=== PATIENT | female | born 1950 | race Caucasian/White ===

== ENCOUNTER 2018-08-20 18:57 | Emergency (ER) | payer MEDICAID, OTHER ==
[~2018-08-20] VITALS: Ht 152.4 cm; Wt 87.3 kg
[2018-08-20 19:11] VITALS: BP 140/64
--- NOTE | 2018-08-20 19:13 | NUR ---
TO LOBBY, AWATING BED IN ED. VSS.
[2018-08-20 20:16] VITALS: BP 143/68
--- NOTE | 2018-08-20 20:16 | NUR ---
PT [facility] IN LOBBY WITH VSS, AWAITNG BED IN DEPT.
--- NOTE | 2018-08-20 20:48 | NUR ---
PATIENT AMBULATED TO ER BED 11
--- NOTE | 2018-08-20 20:53 | NUR ---
68 Y/O F PRESENTED TO ED WITH C/O L SIDE FACIAL PAIN X7 HOURS. 8/10 PAIN, ACHING AND THROBBING. PAIN LOCATED TO L LOWER MOLAR. TENDER TO TOUCH. MUCOUS MEMBANES PINK AND MOIST. ERMD NOTIFIED. WILL CONTINUE TO MONITOR.
[2018-08-20] MEDS ORDERED: KETOROLAC 30 MG/ML VIAL IM ONE (21:30)
--- NOTE | 2018-08-20 22:26 | NUR ---
Patient discharged with v/s stable. Written and verbal after care instructions given and explained. Patient alert, oriented and verbalized understanding of instructions. Ambulatory with steady gait. All questions addressed prior to discharge. ID band removed. Patient advised to follow up with PMD. Rx of azithromycin and motrin given. Patient educated on indication of medication including possible reaction and side effects. Opportunity to ask questions provided and answered.
== END 2018-08-20 22:26 | disposition home or self-care (01) ==
LOC: MED 18:57
DX: B34.9 Viral infection, unspecified (principal); R59.9 Enlarged lymph nodes, unspecified; E11.9 Type 2 diabetes mellitus without complications; I10 Essential (primary) hypertension; Z88.6 Allergy status to analgesic agent
CPT/HCPCS: 96372; 99283; J1885

== ENCOUNTER 2020-12-27 08:36 | Emergency (ER) | payer MEDICARE, MEDICAID ==
[~2020-12-27] VITALS: Ht 149.9 cm; Wt 87.2 kg
[2020-12-27 08:44] VITALS: BP 155/80
--- NOTE | 2020-12-27 08:55 | NUR ---
patient ambulated to bed 8.
--- NOTE | 2020-12-27 09:08 | NUR ---
70 y/o female c/o left flank pain x 4 days. Pt states 8/10 aching to left flank. Denies hematuria/dysuria. Denies n/v/d. Skin warm, dry, intact. Awake and alert. VSS Positioned for comfort. Bed locked and in lowest position. medhx: DM, HTN
[2020-12-27] MEDS ORDERED: MORPHINE SULFATE 2 MG/ML SYR IVP ONE (09:15)
[2020-12-27] MEDS ORDERED: KETOROLAC 15 MG/ML VIAL IVP ONE (09:15)
[2020-12-27 09:40] LABS: BASOPHILS % (AUTO) 0.4 % (0.0-2.0); EOSINOPHILS # (AUTO) 0.1 K/uL (0-0.4); EOSINOPHILS % (AUTO) 1.5 % (0.0-4.0); HEMOGLOBIN 12.4 g/dL (12.0-16.0); LYMPHOCYTES % (AUTO) 30.1 % (20.5-51.1); MEAN CORPUSCULAR HEMOGLOBIN 27 pg (27-31); MEAN CORPUSCULAR HGB CONC 33 g/dL (33-37); MEAN CORPUSCULAR VOLUME 83.6 fL (80-94); MONOCYTES # (AUTO) 0.3 K/uL (0.8-1.0); MONOCYTES % (AUTO) 3.9 % (1.7-9.3); NEUTROPHILS # (AUTO) 4.2 K/uL (1.8-7.7); NEUTROPHILS % (AUTO) 64.1 % (42.2-75.2); PLATELET COUNT (AUTO) 221 K/uL (140-450); RED BLOOD CELL COUNT(AUTO) 4.54 MIL/uL (4.20-5.40); RED CELL DISTRIBUTION WIDTH 15.3 % (11.6-13.7); WHITE BLOOD COUNT (AUTO) 6.6 K/uL (4.8-10.8)
[2020-12-27 09:47] LABS: APPEARANCE,URINE CLEAR (CLEAR); BILIRUBIN,URINE NEGATIVE (NEGATIVE); BLOOD, URINE NEGATIVE (NEGATIVE); COLOR,URINE YELLOW (YELLOW); LEUKOCYTE ESTERASE ,URINE NEGATIVE (NEGATIVE); NITRITE, URINE NEGATIVE (NEGATIVE); UGLUCOSE NEGATIVE (NEGATIVE)
[2020-12-27 09:48] LABS: ANION GAP 15.9 (8-16); CARBON DIOXIDE 25.1 mmol/L (21-32); CHLORIDE 106 mmol/L (98-107); CREATININE 0.8 mg/dL (0.6-1.3); GLUCOSE 133 mg/dL (74-106); SODIUM SERUM 143 mmol/L (136-145); UREA NITROGEN, BLOOD 14 mg/dL (7-18)
[2020-12-27 09:54] LABS: ALBUMIN 3.4 g/dL (3.4-5.0); ASPARTATE AMINOTRANSFERASE 14 U/L (15-37); LIPASE 115 U/L (73-393); TOTAL BILIRUBIN 0.5 mg/dL (0.0-1.0)
--- NOTE | 2020-12-27 10:14 | NUR ---
Pt taken to [facility] via [facility] to [facility]
--- NOTE | 2020-12-27 11:54 | NUR ---
Pt returned from [facility]
[2020-12-27] MEDS ORDERED: LID5T TP (12:20)
[2020-12-27] MEDS ORDERED: IBUP-1842 PO (12:20)
[2020-12-27] MEDS ORDERED: ACET-10509 PO (12:20)
[2020-12-27 13:07] VITALS: BP 148/79
--- NOTE | 2020-12-27 13:08 | NUR ---
Patient discharged with v/s stable. Written and verbal after care instructions given and explained. Patient alert, oriented and verbalized understanding of instructions. Ambulatory with steady gait. All questions addressed prior to discharge. ID band removed. Patient advised to follow up with PMD. Rx of tylenol, motrin, lidocaine patch given. Patient educated on indication of medication including possible reaction and side effects. Opportunity to ask questions provided and answered.
== END 2020-12-27 13:08 | disposition home or self-care (01) ==
LOC: MED 08:36
DX: M54.50 Low back pain, unspecified (principal); E11.9 Type 2 diabetes mellitus without complications; I10 Essential (primary) hypertension; Z79.899 Other long term (current) drug therapy; Z88.6 Allergy status to analgesic agent
CPT/HCPCS: 36415; 80053; 81003; 83690; 85025; 96374; 96375; 99284; J1885; J2270; 81002

== ENCOUNTER 2021-07-27 18:13 | Emergency (ER) | payer OTHER, MEDICAID ==
[~2021-07-27] VITALS: Ht 146.1 cm; Wt 86.9 kg
[~2021-07-27 18:13] MED LIST: ACET-10509 PO; IBUP-1842 PO; LID5T TP
[2021-07-27 18:28] VITALS: BP 210/101
--- NOTE | 2021-07-27 18:37 | NUR ---
PT AMB TO BED 1.
--- NOTE | 2021-07-27 19:00 | NUR ---
71 y/o female c/o cough and mid chest pain. Patient has mid chest pain x 2 days and cough x1 week. Patient has a 4/10 pain level to chest with a pressure. Medical History: DM, HTN ALLERGY: ASPIRIN
--- NOTE | 2021-07-27 19:11 | NUR ---
Report given to SALLY [place] for transfer of care.
[2021-07-27] MEDS ORDERED: ALBUTEROL SULFATE/IPRATROPIU 3 ML SOL IH ONE (19:25)
[2021-07-27] MEDS ORDERED: BENZONATATE 100 MG CAPLF PO ONE (19:25)
--- NOTE | 2021-07-27 19:33 | NUR ---
XRAY AT BEDSIDE
--- NOTE | 2021-07-27 19:34 | NUR ---
RT AT BEDSIDE
[2021-07-27 19:37] LABS: BASOPHILS % (AUTO) 0.3 % (0.0-2.0); EOSINOPHILS # (AUTO) 0.2 K/uL (0-0.4); EOSINOPHILS % (AUTO) 2.6 % (0.0-4.0); HEMOGLOBIN 12.6 g/dL (12.0-16.0); LYMPHOCYTES # (AUTO) 2.6 K/uL (2.5-16.5); LYMPHOCYTES % (AUTO) 30.7 % (20.5-51.1); MEAN CORPUSCULAR HEMOGLOBIN 27 pg (27-31); MEAN CORPUSCULAR HGB CONC 33 g/dL (33-37); MEAN CORPUSCULAR VOLUME 81.7 fL (80-94); MONOCYTES # (AUTO) 0.4 K/uL (0.8-1.0); MONOCYTES % (AUTO) 4.4 % (1.7-9.3); NEUTROPHILS # (AUTO) 5.3 K/uL (1.8-7.7); PLATELET COUNT (AUTO) 230 K/uL (140-450); RED BLOOD CELL COUNT(AUTO) 4.65 MIL/uL (4.20-5.40); WHITE BLOOD COUNT (AUTO) 8.6 K/uL (4.8-10.8)
[2021-07-27 20:17] LABS: ALBUMIN 3.5 g/dL (3.4-5.0); ANION GAP 12.6 (8-16); ASPARTATE AMINOTRANSFERASE 18 U/L (15-37); CARBON DIOXIDE 26.5 mmol/L (21-32); CHLORIDE 105 mmol/L (98-107); CREATININE 0.9 mg/dL (0.6-1.3); GLUCOSE 123 mg/dL (74-106); POTASSIUM 4.1 mmol/L (3.5-5.1); SODIUM SERUM 140 mmol/L (136-145); TOTAL BILIRUBIN 0.5 mg/dL (0.0-1.0); UREA NITROGEN, BLOOD 11 mg/dL (7-18)
--- NOTE | 2021-07-27 20:38 | NUR ---
COVID AND FLU SWABS COLLECTED AND SENT TO LAB
--- NOTE | 2021-07-27 22:03 | NUR ---
INFLUENZA B POSITIVE. ER NOTIFED
[2021-07-27] MEDS ORDERED: BENZ200C4 PO (23:27)
[2021-07-27 23:40] VITALS: BP 158/57
--- NOTE | 2021-07-27 23:40 | NUR ---
Patient discharged with v/s stable. Written and verbal after care instructions given and explained. Patient alert, oriented and verbalized understanding of instructions. Ambulatory with steady gait. All questions addressed prior to discharge. ID band removed. Patient advised to follow up with PMD. Rx of BENXONATATE given. Patient educated on indication of medication including possible reaction and side effects. Opportunity to ask questions provided and answered.
--- NOTE | 2021-07-27 23:41 | NUR ---
Chart checked and completed.
== END 2021-07-27 23:40 | disposition home or self-care (01) ==
LOC: MED 18:13
DX: J10.1 Influenza due to other identified influenza virus with other respiratory manifestations (principal); Z20.822 Contact with and (suspected) exposure to COVID-19; E11.9 Type 2 diabetes mellitus without complications; I10 Essential (primary) hypertension; Z79.899 Other long term (current) drug therapy; Z88.6 Allergy status to analgesic agent
CPT/HCPCS: 36415; 71045; 80053; 81002; 82948; 83880; 84484; 85025; 93005; 94640; 99285

== ENCOUNTER 2022-02-15 04:59 | Emergency (ER) | payer OTHER, MEDICAID ==
[~2022-02-15] VITALS: Ht 152.4 cm; Wt 89.8 kg
[~2022-02-15 04:59] MED LIST changes: +BENZ200C4 PO
[2022-02-15 05:01] VITALS: BP 206/77
--- NOTE | 2022-02-15 05:20 | NUR ---
PATIENT AMBULATED TO BED 12 WITH DAUGHTER. PLACED BEDSIDE BODY MASKER. BED LOW AND LOCKED. SIDE RAILS FOR SAFETY X1. ALL NEED MET.
[2022-02-15] MEDS ORDERED: ALBUTEROL SULFATE/IPRATROPIU 3 ML SOL IH ONE (05:25)
--- NOTE | 2022-02-15 05:25 | NUR ---
SWABS COLLECTED AND WALKED TO LAB
--- NOTE | 2022-02-15 05:31 | NUR ---
RT AT BEDSIDE
--- NOTE | 2022-02-15 05:54 | NUR ---
RAD AT BEDSIDE
--- NOTE | 2022-02-15 05:56 | NUR ---
LAB AT BEDSIDE
[2022-02-15 06:28] LABS: BASOPHILS % (AUTO) 0.3 % (0.0-2.0); EOSINOPHILS # (AUTO) 0.1 K/uL (0-0.4); EOSINOPHILS % (AUTO) 1.2 % (0.0-4.0); HEMATOCRIT 37.6 % (36-48); HEMOGLOBIN 12.4 g/dL (12.0-16.0); LYMPHOCYTES # (AUTO) 1.7 K/uL (2.5-16.5); LYMPHOCYTES % (AUTO) 30.5 % (20.5-51.1); MEAN CORPUSCULAR HEMOGLOBIN 27 pg (27-31); MEAN CORPUSCULAR HGB CONC 33 g/dL (33-37); MEAN CORPUSCULAR VOLUME 82.9 fL (80-94); MONOCYTES # (AUTO) 0.3 K/uL (0.8-1.0); MONOCYTES % (AUTO) 5.7 % (1.7-9.3); NEUTROPHILS # (AUTO) 3.4 K/uL (1.8-7.7); NEUTROPHILS % (AUTO) 62.3 % (42.2-75.2); PLATELET COUNT (AUTO) 163 K/uL (140-450); RED BLOOD CELL COUNT(AUTO) 4.53 MIL/uL (4.20-5.40); RED CELL DISTRIBUTION WIDTH 14.4 % (11.6-13.7); WHITE BLOOD COUNT (AUTO) 5.4 K/uL (4.8-10.8)
--- NOTE | 2022-02-15 06:30 | NUR ---
Dr. Islas by bedside evaluating Pt
[2022-02-15] MEDS ORDERED: guaiFENesin DM 200/20 MG-10 ML 10 ML UDC PO ONE (06:40)
[2022-02-15 06:45] LABS: ANION GAP 13.7 (8-16); ASPARTATE AMINOTRANSFERASE 19 U/L (15-37); CHLORIDE 106 mmol/L (98-107); CREATININE 0.9 mg/dL (0.6-1.3); GLUCOSE 144 mg/dL (74-106); POTASSIUM 3.7 mmol/L (3.5-5.1); SODIUM SERUM 144 mmol/L (136-145); TOTAL BILIRUBIN 0.3 mg/dL (0.0-1.0); UREA NITROGEN, BLOOD 14 mg/dL (7-18)
--- NOTE | 2022-02-15 06:52 | NUR ---
PATIENT MEDICATED PER ORDERS. TOLERATED WELL.
[2022-02-15] MEDS ORDERED: ROB PO (07:15)
--- NOTE | 2022-02-15 07:20 | NUR ---
Pt report given to Kimi TAVAREZ. Transfer of care at this time.
--- NOTE | 2022-02-15 07:20 | NUR ---
RECEIVED REPORT FROM JACOB TAVAREZ AND DAYANNA RN, TRANSFER OF CARE AT THIS TIME
--- NOTE | 2022-02-15 07:30 | NUR ---
CLARIFIED WITH DR ELIZALDE REGARDING PT VS, ERMJermaine STATED THAT PT IS OK TO DISCHARGE WITH VITALS. CALLED DAUGHTER TO [employer]ES OPERATOR PT
[2022-02-15 07:38] VITALS: BP 187/73
--- NOTE | 2022-02-15 07:38 | NUR ---
Patient discharged with v/s stable. Written and verbal after care instructions ABOUT UPPER RESPIRATORY INFECTION given and explained. Patient alert, oriented and verbalized understanding of instructions. Ambulatory with steady gait. All questions addressed prior to discharge. ID band removed. Patient advised to follow up with PMD. Rx of ROBITUSSIN given. Patient educated on indication of medication including possible reaction and side effects. Opportunity to ask questions provided and answered.
== END 2022-02-15 07:38 | disposition home or self-care (01) ==
LOC: MED 04:59
DX: J06.9 Acute upper respiratory infection, unspecified (principal); Z20.822 Contact with and (suspected) exposure to COVID-19; E11.9 Type 2 diabetes mellitus without complications; I10 Essential (primary) hypertension; Z79.899 Other long term (current) drug therapy; Z88.6 Allergy status to analgesic agent
CPT/HCPCS: 36415; 71045; 80053; 84484; 85025; 93005; 94640; 99285

== ENCOUNTER 2023-08-10 14:13 | Emergency (ER) | payer MEDICARE, MEDICAID ==
[~2023-08-10] VITALS: Ht 152.4 cm; Wt 86.6 kg
[~2023-08-10 14:13] MED LIST changes: +ROB PO
[2023-08-10 14:38] VITALS: BP 154/82; PULSE 94; RESP 18; TEMP 98; O2SAT 95
[2023-08-10 14:45] VITALS: O2SAT 95
[2023-08-10 15:27] LABS: BASOPHILS % (AUTO) 0.4 % (0.0-2.0); EOSINOPHILS # (AUTO) 0.1 K/uL (0-0.4); HEMOGLOBIN 12.9 g/dL (12.0-16.0); LYMPHOCYTES % (AUTO) 20.3 % (20.5-51.1); MEAN CORPUSCULAR HEMOGLOBIN 28 pg (27-31); MEAN CORPUSCULAR HGB CONC 34 g/dL (33-37); MEAN CORPUSCULAR VOLUME 82.6 fL (80-94); MONOCYTES # (AUTO) 0.4 K/uL (0.8-1.0); MONOCYTES % (AUTO) 4.1 % (1.7-9.3); NEUTROPHILS # (AUTO) 7.5 K/uL (1.8-7.7); NEUTROPHILS % (AUTO) 74.2 % (42.2-75.2); PLATELET COUNT (AUTO) 258 K/uL (140-450); RED CELL DISTRIBUTION WIDTH 15.1 % (11.6-13.7); WHITE BLOOD COUNT (AUTO) 10.1 K/uL (4.8-10.8)
[2023-08-10] MEDS: KETOROLAC 30 MG/ML VIAL IVP ONE (15:37)
[2023-08-10] MEDS: ONDANSETRON 4 MG/2 ML VIAL IVP ONE (15:41)
[2023-08-10 15:46] LABS: ANION GAP 15.5 (8-16); CALCIUM 9.8 mg/dL (8.5-10.1); CARBON DIOXIDE 26.2 mmol/L (21-32); CHLORIDE 101 mmol/L (98-107); CREATININE 1.2 mg/dL (0.6-1.3); GLUCOSE 130 mg/dL (74-106); POTASSIUM 3.7 mmol/L (3.5-5.1); SODIUM SERUM 139 mmol/L (136-145); UREA NITROGEN, BLOOD 12 mg/dL (7-18)
[2023-08-10 15:48] LABS: APPEARANCE,URINE CLEAR (CLEAR); BILIRUBIN,URINE NEGATIVE (NEGATIVE); BLOOD, URINE NEGATIVE (NEGATIVE); COLOR,URINE YELLOW (YELLOW); LEUKOCYTE ESTERASE ,URINE NEGATIVE (NEGATIVE); NITRITE, URINE NEGATIVE (NEGATIVE); PROTEIN,URINE NEGATIVE (NEGATIVE); UGLUCOSE NEGATIVE (NEGATIVE); UROBILINOGEN,URINE 0.2 EU/dL (0.2 - 1)
[2023-08-10 15:49] LABS: BILIRUBIN,DIRECT 0.1 mg/dL (0.0-0.3); TOTAL BILIRUBIN 0.7 mg/dL (0.0-1.0); TOTAL PROTEIN, SERUM 7.9 g/dL (6.4-8.2)
[2023-08-10] MEDS ORDERED: IBUP-2213 PO (16:06)
[2023-08-10] MEDS ORDERED: ONDA8TAB87 PO (16:06)
== END 2023-08-10 16:21 | disposition home or self-care (01) ==
LOC: MED 14:13
DX: R10.13 Epigastric pain (principal); I10 Essential (primary) hypertension; E11.9 Type 2 diabetes mellitus without complications; Z79.82 Long term (current) use of aspirin; Z79.4 Long term (current) use of insulin; Z79.899 Other long term (current) drug therapy; Z90.710 Acquired absence of both cervix and uterus
CPT/HCPCS: 36415; 74176; 80048; 80076; 81003; 83690; 85025; 96374; 96375; 99285; J1885; J2405

== ENCOUNTER 2023-10-11 11:18 | Emergency (ER) | payer MEDICARE, MEDICAID ==
[~2023-10-11] VITALS: Ht 152.4 cm; Wt 89.8 kg
[~2023-10-11 11:18] MED LIST changes: +IBUP-2213 PO; +ONDA8TAB87 PO
[2023-10-11 11:22] VITALS: BP 131/74; PULSE 68; RESP 18; TEMP 98.3; O2SAT 95
[2023-10-11 11:27] VITALS: O2SAT 94
[2023-10-11 12:06] LABS: BASOPHILS % (AUTO) 0.3 % (0.0-2.0); EOSINOPHILS # (AUTO) 0.2 K/uL (0-0.4); EOSINOPHILS % (AUTO) 2.6 % (0.0-4.0); HEMATOCRIT 35.1 % (36-48); HEMOGLOBIN 11.4 g/dL (12.0-16.0); LYMPHOCYTES # (AUTO) 1.9 K/uL (2.5-16.5); LYMPHOCYTES % (AUTO) 23.9 % (20.5-51.1); MEAN CORPUSCULAR HEMOGLOBIN 27 pg (27-31); MEAN CORPUSCULAR HGB CONC 33 g/dL (33-37); MEAN CORPUSCULAR VOLUME 82.5 fL (80-94); MONOCYTES # (AUTO) 0.4 K/uL (0.8-1.0); MONOCYTES % (AUTO) 5.1 % (1.7-9.3); NEUTROPHILS # (AUTO) 5.3 K/uL (1.8-7.7); NEUTROPHILS % (AUTO) 68.1 % (42.2-75.2); PLATELET COUNT (AUTO) 205 K/uL (140-450); RED BLOOD CELL COUNT(AUTO) 4.25 MIL/uL (4.20-5.40); RED CELL DISTRIBUTION WIDTH 15.4 % (11.6-13.7); WHITE BLOOD COUNT (AUTO) 7.8 K/uL (4.8-10.8)
[2023-10-11 12:21] LABS: ANION GAP 14.6 (8-16); CALCIUM 9.2 mg/dL (8.5-10.1); CARBON DIOXIDE 23.3 mmol/L (21-32); CHLORIDE 104 mmol/L (98-107); CREATININE 0.9 mg/dL (0.6-1.3); GLUCOSE 183 mg/dL (74-106); POTASSIUM 3.9 mmol/L (3.5-5.1); SODIUM SERUM 138 mmol/L (136-145); UREA NITROGEN, BLOOD 12 mg/dL (7-18)
[2023-10-11 12:31] LABS: INR 0.98 (0.8-1.2); PROTHROMBIN TIME 10.3 secs (10.8-13.4)
[2023-10-11 12:36] LABS: PARTIAL THROMBOPLASTIN TIME 19.2 secs (22-35.6)
[2023-10-11] MEDS: ALBUTEROL 0.083% 2.5 MG/3 ML NEBU INH ONE (13:08)
[2023-10-11 13:09] VITALS: PULSE 60; RESP 24; O2SAT 98
[2023-10-11] MEDS: LOSARTAN 50 MG TAB PO ONE (13:54)
[2023-10-11 14:52] VITALS: O2SAT 98
[2023-10-11] MEDS ORDERED: AZIT250T4 PO (15:15)
[2023-10-11] MEDS ORDERED: ALBU0.0912 IH (15:15)
[2023-10-11 15:18] VITALS: BP 162/80; PULSE 62; RESP 19; TEMP 98.3; O2SAT 94
== END 2023-10-11 15:21 | disposition home or self-care (01) ==
LOC: MED 11:18
DX: J40 Bronchitis, not specified as acute or chronic (principal); E11.9 Type 2 diabetes mellitus without complications; I10 Essential (primary) hypertension; Z79.1 Long term (current) use of non-steroidal anti-inflammatories (NSAID); Z79.2 Long term (current) use of antibiotics; Z79.899 Other long term (current) drug therapy; Z88.8 Allergy status to other drugs, medicaments and biological substances
CPT/HCPCS: 36415; 71045; 80048; 83880; 84484; 85025; 85610; 85730; 93005; 94640; 99285; J7613